=== PATIENT | male | born 1960 | race Caucasian/White ===

== ENCOUNTER → 2020-03-01 | Emergency (ER) | payer OTHER ==
[~2020-03-01] VITALS: Ht 185.4 cm; Wt 86.2 kg
[~2020-03-01] MED LIST: ACTIGALL300 MG; AMLODIPINE BESY10 MG; AMOXICILLIN 50500 MG PO; ANDROGEL1.25 GM; CELLCEPT 250 M250 MG; CIALIS20 MG; CIPROFLOXACIN500 M1 PO; GLUCOPHAGE500 MG; LOSARTAN POTASS50 MG; NORCO 5-325 TA1 EACH PO; OMEPRAZOLE 20 M20 M1; PREDNISONE 1 MG1 M1 PO; PREDNISONE 5 MG5 M1; PROGRAF0.5 MG; VITAMIN D10000 UNIT; ZOFRAN4 MG PO
[2020-03-01 17:37] VITALS: BP 122/84
== END ==
LOC: M.ERS 17:14
DX: S02.5XXA Fracture of tooth (traumatic), initial encounter for closed fracture (principal); R22.0 Localized swelling, mass and lump, head; K21.9 Gastro-esophageal reflux disease without esophagitis; Z94.4 Liver transplant status; Z90.89 Acquired absence of other organs; Z88.5 Allergy status to narcotic agent; Z88.8 Allergy status to other drugs, medicaments and biological substances; X58.XXXA Exposure to other specified factors, initial encounter; Y93.89 Activity, other specified; Y92.89 Other specified places as the place of occurrence of the external cause; Y99.8 Other external cause status